=== PATIENT | female | born 1945 | race Caucasian/White ===

== ENCOUNTER 2023-01-18 12:00 | Inpatient (IN) ==
[2023-01-18] MEDS ORDERED: DILTIAZEM 25 MG/5 ML VIAL IV ONE ×2 (12:20→16:48)
[2023-01-18 12:49] LABS: POC Calcium, Ionized 1.01 (1.16-1.32); POC Creatinine 0.8 (0.6-1.2); POC Potassium 5.1 (3.3-5.1)
--- NOTE | 2023-01-18 13:05 | XRay Report ---
INDICATION: Afib RVR TECHNIQUE: AP portable upright chest x-ray COMPARISON: Previous chest x-ray dated 03/23/2021 FINDINGS: Fibrocalcific, pleural-based abnormalities bilaterally. Findings may be due to old inflammatory disease. Asbestosis is possible. There is cardiomegaly. There are bilateral parenchymal infiltrates, right worse than left. Findings are consistent with congestive heart failure. Pneumonia is possible. There are bilateral pleural effusions with probable small left pleural effusion and small to moderate right pleural effusion. IMPRESSION: 1. Findings consistent with congestive heart failure 2. Fibrocalcific pleural-based abnormality, unchanged Interpreted and Authenticated by: Gerry Romeo 01/18/23
[2023-01-18 13:29] LABS: Hematocrit 42.2 % (34.1-44.9); Hemoglobin 13.6 g/dL (11.2-15.7); Mean Cell Volume 98.4 fL (80.0-100.0); Mean Corpuscular HGB Conc 32.2 g/dL (31.0-36.0); Mean Platelet Volume 11.4 fL (8.8-12.5); Platelet Count 335 K/mcL (140-440); RBC 4.29 M/mcL (3.59-5.38)
[2023-01-18] MEDS ORDERED: DILTIAZEM 30 MG TABLET PO ONE (13:43)
[2023-01-18 13:47] LABS: Platelet Estimate NORMAL (Normal); Polychromasia 1+ (None Seen); RBC Morphology ABNORMAL (Normal)
--- NOTE | 2023-01-18 13:59 | Emergency Department Note ---
HPI General Chief complaint: Arrhythmia/Palpitations Stated complaint: "I don't feel very good" Time Seen by Provider: 01/18/23 12:18 Source: patient Mode of arrival: ambulatory Limitations: no limitations History of Present Illness HPI Narrative: 77-year-old female with history of ischemic coronary artery disease status post coronary stent about 15 years ago, hypertension, hyperlipidemia, COPD and current everyday smoker, T2DM, and remote history of stroke presents to the ER with worsening shortness of breath, weakness, and exertional chest pain. Patient states that she has been having daily chest pain for about 2-1/2 weeks. She is feeling weaker and more tired. She has poor functional capacity at [facility] with longstanding exertional shortness of breath from COPD, but does not feel this is worsening. Her notes that she started taking a nitroglycerin daily about 2 weeks ago for complaints of chest pain, which has been helpful. On presentation she is in rapid atrial fibrillation with a rate of 143 bpm. There are no ST segment elevations, but there are notable ST segment abnormalities with subtle T wave inversions in lead, I, II and V4 wtih ST flattening in V5 and V6. She is currently denying chest pain. She denies lower extremity edema, cough, recent illness. She has not had inc rease of her home albuterol, but states she does not routinely use this. He does note that she has had difficult to control hypertension. She is currently on amlodipine and candesartan/hydrochlorothiazide. She does endorse smoking about 1/2 pack/day. Related Data Home Medications Medication Instructions Recorded Confirmed aspirin 81 mg tablet,delayed 81 mg PO DAILY 12/03/17 01/18/23 release Previous Rx's Medication Instructions Recorded candesartan 32 1 tab PO QDAY #90 tabs 02/13/22 mg-hydrochlorothiazide 25 mg tablet metformin 500 mg tablet,extended 500 mg PO QDAY #90 tabs 03/16/22 release 24 hr donepezil 5 mg tablet 5 mg PO QDAY #90 tabs 09/17/22 amlodipine 10 mg tablet 10 mg PO QDAY #90 tabs 11/09/22 rosuvastatin 10 mg tablet 10 mg PO QDAY #90 tabs 11/09/22 nitroglycerin 0.4 mg sublingual 0.3 mg sublingual Q5M PRN chest 01/02/23 tablet pain #25 tabs Allergies Allergy/AdvReac Type Severity Reaction Status Date / Time Penicillins Allergy Mild rash Verified 01/18/23 11:53 Review of Systems ROS ROS Narrative: Narrative: All systems ED: reviewed and negative except as stated. [facility] Narrative Patient History Narrative: Narrative: Medical/Surgical/Family History All Active Problems Osteoporosis (Chronic 06/2022) Medicare annual wellness visit, initial (Acute) Constipation (Acute) Bilateral conjunctivitis (Acute) Mild cognitive impairment (Chronic) Dizziness (Chronic) Congestive heart failure (Acute) Hypertension (Chronic) Confusion (Acute) Chest pain (Acute) Costochondritis (Acute) Postural lightheadedness (Chronic) Ischemic heart disease, chronic (Chronic) Hypertension, essential (Chronic) Hyperlipidemia (Chronic) Diabetes mellitus, type II (Chronic) CVA (cerebral vascular accident) (Chronic) Coronary artery disease (Chronic) Chronic obstructive pulmonary disease (Chronic) Medical History Cataract associated with other syndromes cataracts removed 2016 Chronic obstructive pulmonary disease Coronary artery disease CVA (cerebral vascular accident) Ischemic (Dx: 434.90) Diabetes mellitus, type II Hyperlipidemia Hypertension Hypertension, essential Ischemic heart disease, chronic Medicare annual wellness visit, initial Osteoporosis (06/2022) Postural lightheadedness Surgical History History of esophagogastroduodenoscopy (11/25/13) History of surgical procedure Stent Family History Mother Type 2 diabetes mellitus High blood pressure Social History Smoking Status: Former smoker Alcohol Intake Frequency: a few times a month Substance Use: does not use Exam Narrative Narrative: General: AOx3, NAD, nontoxic appearing. Pleasant and conversant. HEENT: PERRL, EOMI, normocephalic. Moist mucous membranes. Normal facies Chest: Symmetric, no pain to palpation Respiratory: Diminished breath sounds in the right base with crackles. No wheezes. No respiratory distress. Unlabored breathing. Heart: Regular rate and rhythm, no murmurs/clicks/rubs. Abdomen: Non-tender, Non distended, normal bowel tones. No organomegaly. Extremities: Warm and well perfused. No edema. DP 2+ bilaterally. No venous stasis. Neuro: No focal deficits. Cranial nerves II-XII grossly normal. Skin: Warm dry, no rashes or lesions, no cyanosis. Psych: Normal mood and affect Heme/Lymph: No abnormal bruising General Limitations: no limitations Course Course Course Narrative: 77-year-old female presents for new onset rapid atrial fibrillation Reevaluation(s) Reevaluation #1: Obtain basic labs, troponin, EKG Patient's blood pressures are elevated and will be able to tolerate a 10 mg IV diltiazem push for attempted rate control Obtain chest x-ray Reevaluation #2: Urine is elevated at 0.18 though the patient is denying chest pain. EKG shows atrial fibrillation with a rate of 143 bpm but no acute ST segment elevations to suggest STEMI. She does have some nonspecific ST segment elevations. We will repeat troponin in 3 hours Chest x-ray shows evidence of congestive heart failure with bilateral pleural effusions 10 mg IV diltiazem push with rates now in the low 90s to 100. Blood pressures tolerated this well with systolic blood pressure coming down to 127 systolic blood pressures. Reevaluation #3: Repeat troponin is 0.17. Vital Signs Vital signs: Vital Signs Temperature 98.4 F 01/18/23 12:00 Pulse Rate 153 H 01/18/23 12:00 Respiratory Rate 22 01/18/23 12:00 Blood Pressure 146/123 01/18/23 12:00 Pulse Oximetry (%) 94 01/18/23 12:00 Oxygen Delivery Method Room Air 01/18/23 12:00 Temperature 98.4 F 01/18/23 12:00 Pulse Rate 75 01/18/23 16:01 Respiratory Rate 21 01/18/23 16:01 Blood Pressure 157/97 01/18/23 16:01 Pulse Oximetry (%) 93 01/18/23 16:01 Oxygen Delivery Method Room Air 01/18/23 12:00 [facility] Narrative Medical decision making narrative: New onset rapid atrial fibrillation Evidence of congestive heart failure Elevated troponin with stable serial troponin. Suspect this is type II demand Patient will need admission for stabilization of her atrial fibrillation and further evaluation. I spoke with Dr. Mccarthy who has accepted the patient for admission. We discussed giving her 40 mg of IV Lasix x1 dose and an additional 10 mg of IV Cardizem as the patient's rate did increase back to 130 bpm. He is also asked me started nitroglycerin drip to improve diuresis. The patient is transferred to the floor. Lab Data 01/18/23 12:50 Labs: Lab Results 01/18/23 01/18/23 01/18/23 Range/Units 12:43 12:45 12:50 WBC 10.0 (4.5-11.0) K/mcL RBC 4.29 (3.59-5.38) M/mcL Hgb 13.6 (11.2-15.7) g/dL Hct 42.2 (34.1-44.9) % POC Hct 42.0 (36-48) MCV 98.4 (80.0-100.0) fL MCH 31.7 (26.0-34.0) pg MCHC 32.2 (31.0-36.0) g/dL RDW 16.0 H (11.5-14.5) % Plt Count 335 (140-440) K/mcL MPV 11.4 (8.8-12.5) fL Platelet Estimate Normal (Normal) RBC Morphology Abnormal A (Normal) Polychromasia 1+ A (None Seen) POC Sodium 141 (133-145) POC Potassium 5.1 (3.3-5.1) POC Chloride 109 H (96-108) POC Total CO2 25.0 (22-30) POC Anion Gap 14.0 (8.0-16.0) POC BUN 26 H (6-20) POC Creatinine 0.8 (0.6-1.2) POC Glucose 140 H (70-105) POC WB Ioniz Calcium 1.01 L (1.16-1.32) Magnesium POC Troponin I 0.18 H (0.00-0.08) 01/18/23 01/18/23 01/18/23 Range/Units 12:50 13:38 15:52 WBC (4.5-11.0) K/mcL RBC (3.59-5.38) M/mcL Hgb (11.2-15.7) g/dL Hct (34.1-44.9) % POC Hct (36-48) MCV (80.0-100.0) fL MCH (26.0-34.0) pg MCHC (31.0-36.0) g/dL RDW (11.5-14.5) % Plt Count (140-440) K/mcL MPV (8.8-12.5) fL Platelet Estimate (Normal) RBC Morphology (Normal) Polychromasia (None Seen) POC Sodium (133-145) POC Potassium (3.3-5.1) POC Chloride (96-108) POC Total CO2 (22-30) POC Anion Gap (8.0-16.0) POC BUN (6-20) POC Creatinine (0.6-1.2) POC Glucose (70-105) POC WB Ioniz Calcium (1.16-1.32) Magnesium TNP 2.0 POC Troponin I 0.17 H (0.00-0.08) Discharge Plan Patient/Caregiver Discharge Instructions Pt seen by RECRUITMENT CONSULTANT/PA only: Yes Patient Disposition: Xfer As Inpt ([facility]) Follow up with: Yaneth Simms PA-C [Primary Care Provider] - Prescriptions: No Action candesartan-hydrochlorothiazid 32-25 mg tablet 1 tab PO QDAY Qty: 90 3RF rosuvastatin 10 mg tablet 10 mg PO QDAY Qty: 90 1RF amlodipine 10 mg tablet 10 mg PO QDAY Qty: 90 1RF nitroglycerin 0.4 mg tablet, sublingual 0.3 mg sublingual Q5M PRN (Reason: chest pain) Qty: 25 0RF Rx Instructions: do not exceed 3 doses per episode aspirin 81 mg tablet,delayed release (DR/EC) 81 mg PO DAILY metformin 500 mg tablet extended release 24 hr 500 mg PO QDAY Qty: 90 1RF donepezil 5 mg tablet 5 mg PO QDAY Qty: 90 1RF
[2023-01-18] MEDS ORDERED: APIXABAN 5 MG TABLET PO ONE (15:25)
[2023-01-18] MEDS ORDERED: FUROSEMIDE 20 MG/2 ML VIAL IV ONE (16:41)
[2023-01-18] MEDS ORDERED: FUROSEMIDE 40 MG/4 ML VIAL IV ONE ×2 (16:48→19:34)
[2023-01-18] MEDS ORDERED: 0.9 % SODIUM CHLORIDE 250 ML IV SCH (17:00)
--- NOTE | 2023-01-18 17:05 | Internal Med History&Physical ---
HPI History of Present Illness Patient information: Note initiated : 01/18/23 at 5:00 pm Service Date, if different from initiated Date: [] Patient: Glory Lam a 77 y/o F admitted on for "I don't feel very good". Chief Complaint: [] History of present illness: Ms. Lam is a 77 year old F Presents to [facility] care after feeling crummy for the past couple weeks. History is obtained from the patient and her who state that for the past 2 and half weeks she has had increased shortness of breath and left-sided chest pain that she describes as achy and nonradiating. She does take nitroglycerin as needed and has been taking that. She currently denies any chest pain. She has not seen her primary care doctor for her recent illness. She is also been more shortness of breath and her noticed that she has been more labored. She denies feeling any palpitations. No recent illnesses. Sounds like her blood pressure has been difficult to manage as well. she denies coughing. In the ED she had evaluation and was noted to be in A-fib RVR with rates 130s to 150s. She was hypertensive with systolics 140s to 150s and diastolics 110s. First troponin was 0.18 and follow-up troponin 3 hours later was 0.17. She was given diltiazem bolus with improvement in her heart rate. Patient denies history of atrial fibrillation. Last echocardiogram was June 2021 which shows a good EF of 60%. Dobutamine is stress test was unremarkable performed by Dr. Bueno. TSH and mag gee. Chest x-ray showed pulmonary edema and patient was given Lasix in the ED. Nitroglycerin gtt started for CHF and hypertension. Patient went back up into RVR and was given another bolus and may need to be put on a rate controlling drip. proBNP elevated at 10,000. After evaluating the patient in the ED I requested alycia to run case by cardiology given her h/o cad with stent and recent chest pain episodes as well as new afib with chf. she is also still smoking cigarettes. Case was d/w with Dr. Knox at [facility] who recommended treating here for new afib rvr with associated chf and she can f/u with them for ischemic w/u. Review of Systems: Pertinent positives as above. Denies headache/fever/chills/nausea/vomiting/chest or abdominal pain/cough/diarrhea. Remaining 10 point review of system reviewed negative. PHYSICAL EXAM General: Alert, Awake, mild Distress Eyes/N/T: EOMI, no scleral icterus, PERRL, Head/Neck: neck supple, full ROM, normocephalic atraumatic, JVD CV: irreg and tachy, No murmurs, normal s1/s2 Pulm: mild subtle rales, diminished b/l, no wheezing, mild respiratory distress Abd: soft, nontender, +BS x4 Ext: no clubbing/cyanosis/edema, nontender Neuro: Alert, CN 2-12 grossly intact, no focal deficits, moves all extremities, , sensations intact b/l upper/lower Psychiatric: Skin: warm/dry, normal color PFSH PFSH All Active Problems Osteoporosis (Chronic 06/2022) Medicare annual wellness visit, initial (Acute) Constipation (Acute) Bilateral conjunctivitis (Acute) Mild cognitive impairment (Chronic) Dizziness (Chronic) Congestive heart failure (Acute) Hypertension (Chronic) Confusion (Acute) Chest pain (Acute) Costochondritis (Acute) Postural lightheadedness (Chronic) Ischemic heart disease, chronic (Chronic) Hypertension, essential (Chronic) Hyperlipidemia (Chronic) Diabetes mellitus, type II (Chronic) CVA (cerebral vascular accident) (Chronic) Coronary artery disease (Chronic) Chronic obstructive pulmonary disease (Chronic) Medical History Cataract associated with other syndromes cataracts removed 2016 Chronic obstructive pulmonary disease Coronary artery disease CVA (cerebral vascular accident) Ischemic (Dx: 434.90) Diabetes mellitus, type II Hyperlipidemia Hypertension Hypertension, essential Ischemic heart disease, chronic Medicare annual wellness visit, initial Osteoporosis (06/2022) Postural lightheadedness Surgical History History of esophagogastroduodenoscopy (11/25/13) History of surgical procedure Stent Family History Mother Type 2 diabetes mellitus High blood pressure Social History marital status: occupational status: retired smoking status: Former smoker quit status: not considering quitting counseling given: patient declined alcohol intake frequency: a few times a month substance use type: does not use MEDS/ALLERGIES Home Medications and Allergies Home Medications Medication Instructions Recorded Confirmed Type aspirin 81 mg tablet,delayed 81 mg PO DAILY 12/03/17 01/18/23 History release candesartan 32 1 tab PO QDAY #90 tabs 02/13/22 01/18/23 Rx mg-hydrochlorothiazide 25 mg tablet metformin 500 mg tablet,extended 500 mg PO QDAY #90 tabs 03/16/22 01/18/23 Rx release 24 hr donepezil 5 mg tablet 5 mg PO QDAY #90 tabs 09/17/22 01/18/23 Rx amlodipine 10 mg tablet 10 mg PO QDAY #90 tabs 11/09/22 01/18/23 Rx rosuvastatin 10 mg tablet 10 mg PO QDAY #90 tabs 11/09/22 01/18/23 Rx nitroglycerin 0.4 mg sublingual 0.3 mg sublingual Q5M PRN chest 01/02/2310/11 Rx tablet pain #25 tabs Allergies Allergy/AdvReac Type Severity Reaction Status Date / Time Penicillins Allergy Mild rash Verified 01/18/23 11:53 EXAM Constitutional Vitals: Temp Pulse Resp BP Pulse Ox O2 Del Method 98.4 F 75 21 157/97 93 Room Air 01/18/23 12:00 01/18/23 16:01 01/18/23 16:01 01/18/23 16:01 01/18/23 16:01 01/18/23 12:00 DATA Data Completed and Pending Labs: Labs from last 24 hours 01/18/23 01/18/23 01/18/23 15:52 15:50 13:38 WBC RBC Hgb Hct POC Hct MCV MCH MCHC RDW Plt Count MPV Platelet Estimate RBC Morphology Polychromasia POC Sodium POC Potassium POC Chloride POC Total CO2 POC Anion Gap POC BUN POC Creatinine POC Glucose POC WB Ioniz Calcium Magnesium 2.0 NT-Pro-B Natriuret Pep Pending TSH Pending POC Troponin I 0.17 H 01/18/23 01/18/23 01/18/23 12:50 12:50 12:45 WBC 10.0 RBC 4.29 Hgb 13.6 Hct 42.2 POC Hct 42.0 MCV 98.4 MCH 31.7 MCHC 32.2 RDW 16.0 H Plt Count 335 MPV 11.4 Platelet Estimate Normal RBC Morphology Abnormal A Polychromasia 1+ A POC Sodium 141 POC Potassium 5.1 POC Chloride 109 H POC Total CO2 25.0 POC Anion Gap 14.0 POC BUN 26 H POC Creatinine 0.8 POC Glucose 140 H POC WB Ioniz Calcium 1.01 L Magnesium TNP NT-Pro-B Natriuret Pep TSH POC Troponin I 01/18/23 12:43 WBC RBC Hgb Hct POC Hct MCV MCH MCHC RDW Plt Count MPV Platelet Estimate RBC Morphology Polychromasia POC Sodium POC Potassium POC Chloride POC Total CO2 POC Anion Gap POC BUN POC Creatinine POC Glucose POC WB Ioniz Calcium Magnesium NT-Pro-B Natriuret Pep TSH POC Troponin I 0.18 H A/P Narrative A/P Narrative: A: *New A-fib with RVR: -CHADSVASC=7 -tsh/mag ok *Acute CHF: 2/2 above *Demand ischemia: 2/2 above, trop flat 0.18>0.17 *HTN Urgency: elevated on admit -sounds like it has been difficult to treat outpt *h/o CAD w/stents: -Unremarkable dobutamine stress test June 2021 -pt on asa/statin *h/o CVA: pt on asa/statin *COPD(not on home O2): *DM2: on metformin *HTN/HLD: On Norvasc/candesartan/hydrochlorothiazide *Memory loss: ?early vascular dementia vs MCI -on donepezil *Tobacco abuse: * P: -Esmolol drip prn, start PO Lopressor may switch to coreg to help with BP control -IV lasix x1, prn lasix, f/u cxr and respiratory -nitro gtt -Monitor blood pressure closely -Anticoagulation with Lovenox twice daily, likely to Eliquis upon discharge -cont asa 81mg, statin -echo pending -Monitor urine output/renal function/electrolytes and replace as needed -cont ARB -SSI -Home medication reconciliation -PT/OT -CM for any placement needs -Smoking cessation counseling >3 minutes -ppx: Lovenox twice daily DNR Time Spent With Patient Time: Total time spent is greater than 50% in coordination of care (as documented) at patient's floor/unit and/or counseling patient: Critical Care Time: Yes Total Critical Care Time: 70
[2023-01-18 17:07] LABS: Thyroid Stimulating Hormone 1.97 uIU/mL (0.27-5.01)
[2023-01-18] MEDS ORDERED: ACETAMINOPHEN 325 MG TABLET PO PRN (18:40)
[2023-01-18] MEDS ORDERED: ONDANSETRON 4 MG/2 ML VIAL IV PRN (18:40)
[2023-01-18] MEDS ORDERED: SENNOSIDES 1 TABLET PO PRN (18:40)
[2023-01-18] MEDS ORDERED: POTASSIUM CHLORIDE 20 MEQ TABLET PO PRN (18:40)
[2023-01-18] MEDS ORDERED: NITROGLYCERIN 0.4 MG TAB.SUBL SL PRN (18:40)
[2023-01-18] MEDS ORDERED: POLYETHYLENE GLYCOL 3350 17 GM PACKET PO PRN (18:40)
[2023-01-18] MEDS ORDERED: DEXTROSE 50% 50 ML VIAL IV PRN (18:40)
[2023-01-18] MEDS ORDERED: ESMOLOL 2,500 MG in PREMIX 1 BAG IV PRN (18:40)
[2023-01-18] MEDS ORDERED: IPRATROPIUM/ALBUTEROL 3 ML AMPUL.NEB NEB PRN (18:40)
[2023-01-18] MEDS ORDERED: MAGNESIUM SULFATE 2 GM/50 ML BAG IV PRN (18:40)
[2023-01-18] MEDS ORDERED: DEXTROSE 31 GM ORAL.SUSP PO PRN (18:40)
[2023-01-18] MEDS ORDERED: POTASSIUM CHLORIDE 40 MEQ in DEXTROSE 5% IN WATER 500 ML IV PRN (18:40)
[2023-01-18] MEDS: LABETALOL 5 MG/ML ML IV PRN ×2 (19:00→22:32)
[2023-01-18] MEDS ORDERED: METOPROLOL TARTRATE 5 MG/5 ML VIAL IV PRN (19:34)
[2023-01-18] MEDS: NITROGLYCERIN/D5W 25 MG/250 ML BOTTLE IV SCH (19:42)
[2023-01-18] MEDS: DOCUSATE SODIUM 100 MG CAPSULE PO SCH (19:45)
[2023-01-18] MEDS: ENOXAPARIN 80 MG/0.8 ML SYRINGE SQ SCH (19:47)
[2023-01-18] MEDS: METOPROLOL TARTRATE 25 MG TABLET PO SCH (19:47)
[2023-01-18] MEDS: INSULIN LISPRO 1 UNIT/0.01 ML UNIT SQ SCH (19:55)
[2023-01-18 20:32] LABS: Hemoglobin A1C 5.7 % Hgb (4.0-6.0)
[2023-01-18 22:24] LABS: Appearance,Urine CLOUDY (Clear); Bacteria,Urine MANY /hpf (0); Bilirubin,Urine Negative (Negative); Color,Urine YELLOW; Culture Indicated,Urine yes; Glucose,Urine (UA) Negative (Negative); Ketones,Urine Negative (Negative); Leukocyte Esterase,Urine 500 /uL (Negative); Mucus,Urine MANY /hpf; Nitrate,Urine Negative (Negative); Protein,Urine 30 mg/dL (Negative); Specific Gravity,Urine 1.012 (1.000-1.035); Urine Blood 0.03 mg/dL (Negative); Urine RBC 4 /hpf (0-3); Urine Squamous Epithelial Cell 1 /hpf (0-4); Urine WBC > 182 /hpf (0-4); Urobilinogen,Urine Negative
[2023-01-19] MEDS: LABETALOL 5 MG/ML ML IV PRN ×3 (00:22→13:11)
[2023-01-19] MEDS: 0.9 % SODIUM CHLORIDE 250 ML IV SCH ×4 (00:29→20:43)
[2023-01-19 06:05] LABS: Basophils # (Auto) 0.07 K/mcL (0.00-0.30); Basophils % (Auto) 0.7 % (0.0-2.0); Eosinophils # (Auto) 0.19 K/mcL (0.00-0.70); Eosinophils % (Auto) 1.9 % (0.0-7.0); Hematocrit 40.7 % (34.1-44.9); Hemoglobin 12.7 g/dL (11.2-15.7); Lymphocytes # (Auto) 3.26 K/mcL (1.50-4.80); Lymphocytes % (Auto) 32.4 % (15.5-49.0); Mean Cell Volume 101.5 fL (80.0-100.0); Mean Corpuscular HGB Conc 31.2 g/dL (31.0-36.0); Mean Platelet Volume 10.9 fL (8.8-12.5); Monocytes # (Auto) 0.67 K/mcL (0.10-0.90); Monocytes % (Auto) 6.7 % (1.0-12.0); Platelet Count 298 K/mcL (140-440); RBC 4.01 M/mcL (3.59-5.38); WBC 10.1 K/mcL (4.5-11.0)
[2023-01-19 06:47] LABS: ALT/SGPT 23 U/L (<40); AST/SGOT 19 U/L (<32); Albumin 3.5 gm/dL (3.2-5.2); Albumin/Globulin Ratio 1.5 (1.0-2.3); Alkaline Phosphatase 110 U/L (39-117); Bilirubin,Direct 0.3 mg/dL (<0.3); Bilirubin,Total 1.1 mg/dL (0.1-1.0); Blood Urea Nitrogen 12 mg/dL (8-23); Calcium 8.2 mg/dL (8.6-10.4); Carbon Dioxide 26 mmol/L (22-30); Chloride 106 mmol/L (96-108); Globulin 2.3 gm/dL (2.2-3.7); Glomerular Filtration Rate 70; Glucose 113 mg/dL (70-105); Lactate Dehydrogenase 223 U/L (135-225); Phosphorous 2.7 mg/dL (2.5-4.5); Triglycerides 122 mg/dL (<150); Uric Acid 6.2 mg/dL (2.5-8.0)
[2023-01-19] MEDS: INSULIN LISPRO 1 UNIT/0.01 ML UNIT SQ SCH ×4 (07:07→20:44)
[2023-01-19] MEDS: POTASSIUM CHLORIDE 20 MEQ TABLET PO PRN (07:19)
[2023-01-19] MEDS: DOCUSATE SODIUM 100 MG CAPSULE PO SCH ×2 (07:19→20:44)
[2023-01-19] MEDS: METOPROLOL TARTRATE 25 MG TABLET PO SCH (07:19)
[2023-01-19] MEDS: ASPIRIN 81 MG TAB.CHEW CHEWED SCH (07:19)
[2023-01-19] MEDS: ENOXAPARIN 80 MG/0.8 ML SYRINGE SQ SCH (07:20)
[2023-01-19] MEDS ORDERED: ENALAPRILAT 1.25 MG/ML VIAL IV PRN (08:32)
[2023-01-19] MEDS ORDERED: CARVEDILOL 6.25 MG TABLET PO ONE (08:34)
--- NOTE | 2023-01-19 08:34 | Internal Med Progress Note ---
SUBJECTIVE Subjective Patient information: Note initiated : 01/19/23 at 8:30 am Service Date, if different from initiated Date: [] Patient: Glory Lam a 77 y/o F admitted on 01/18/23 for "I don't feel very good". Chief Complaint: [] Interval history: History of present illness: Ms. Lam is a 77 year old F Presents to [facility] care after feeling crummy for the past couple weeks. History is obtained from the patient and her who state that for the past 2 and half weeks she has had increased shortness of breath and left-sided chest pain that she describes as achy and nonradiating. She does take nitroglycerin as needed and has been taking that. She currently denies any chest pain. She has not seen her primary care doctor for her recent illness. She is also been more shortness of breath and her noticed that she has been more labored. She denies feeling any palpitations. No recent illnesses. Sounds like her blood pressure has been difficult to manage as well. she denies coughing. In the ED she had evaluation and was noted to be in A-fib RVR with rates 130s to 150s. She was hypertensive with systolics 140s to 150s and diastolics 110s. First troponin was 0.18 and follow-up troponin 3 hours later was 0.17. She was given diltiazem bolus with improvement in her heart rate. Patient denies history of atrial fibrillation. Last echocardiogram was June 2021 which shows a good EF of 60%. Dobutamine is stress test was unremarkable performed by Dr. Bueno. TSH and mag gee. Chest x-ray showed pulmonary edema and patient was given Lasix in the ED. Nitroglycerin gtt started for CHF and hypertension. Patient went back up into RVR and was given another bolus and may need to be put on a rate controlling drip. proBNP elevated at 10,000. After evaluating the patient in the ED I requested alycia to run case by cardiology given her h/o cad with stent and recent chest pain episodes as well as new afib with chf. she is also still smoking cigarettes. Case was d/w with Dr. Knox at [facility] who recommended treating here for new afib rvr with associated chf and she can f/u with them for ischemic w/u. 01/19 Patient states she slept okay but feels crummy this morning. Patient did not require esmolol drip overnight. Did fine on IV and p.o. Lopressor. Blood pressure improving on nitro drip and will DC. Good urine output overnight and multiple urinary incontinence is unrecorded amount. Mild hypokalemia and will replete. Follow-up chest x-ray status post diuresis and rate control with improved interstitial edema. Review of Systems: Pertinent positives as above. Denies headache/fever/chills/naus ea/vomiting/chest or abdominal pain/cough/diarrhea. Remaining 10 point review of system reviewed negative. PHYSICAL EXAM General: Alert, Awake, mild Distress Eyes/N/T: EOMI, no scleral icterus, Head/Neck: neck supple, full ROM, no more jvd CV: irreg, No murmurs, Pulm: mild subtle rales better, diminished b/l better, no wheezing, no respiratory distress Abd: soft, nontender, +BS x4 Ext: no clubbing/cyanosis/edema, nontender Neuro: Alert, no focal deficits, moves all extremities, , sensations intact b/l upper/lower Psychiatric: Skin: warm/dry, normal color Constitutional Vitals: Vital Signs Temp Pulse Resp BP Pulse Ox O2 Del Method O2 Flow Rate 97.5 F 79 18 154/98 95 Room Air 1 01/19/23 00:01 01/19/23 08:09 01/19/23 08:09 01/19/23 08:01 01/19/23 08:09 01/19/23 07:38 01/19/23 05:01 Period Temp Pulse Resp BP Sys/Evans Pulse Ox O2 Del Method O2 Flow Rate Last 24 Hr 97.1 F-98.4 F 28-156 15-29 114-172/68-132 88-99 Nasal Cannula- Room Air 1-1 Intake and Output 01/18/23 01/19/23 01/19/23 19:59 03:59 11:59 Intake Total 36 130 Output Total 2053 0 130 Weight 57.697 kg 57.697 kg Intake & Output: Intake & Output 01/18/23 01/19/23 01/19/23 19:59 03:59 11:59 Intake Total 36 130 Output Total 2053 0 130 Weight 57.697 kg 57.697 kg Intake: IV 36 80 NITROGLYCERIN/D5W 25 mg In 250 36 80 ml @ 5 MCG/MIN 3 mls/hr IV . Q24H [facility] Rx#:[id number] Oral 50 Output: Void Amount 2049 0 # of times incontinent of urine 4 Other: Urine Appearance Clear Urine Color Yellow Urine Odor Normal # Bowel Movements 0 OBJ DATA Labs 01/19/23 05:05 01/19/23 05:05 Labs: Abnormal Lab Results 01/19/23 01/19/23 01/18/23 05:05 05:05 21:06 MCV 101.5 H RDW 16.0 H RBC Morphology Polychromasia Potassium 3.1 L POC Chloride POC BUN Glucose 113 H POC Glucose Calcium 8.2 L POC WB Ioniz Calcium Total Bilirubin 1.1 H Direct Bilirubin 0.3 H NT-Pro-B Natriuret Pep Total Protein 5.8 L Urine Appearance Cloudy A Urine Protein 30 A Ur Leukocyte Esterase 500 A Urine RBC 4 H Urine WBC > 182 H Urine Bacteria Many A Urine Mucus Many A POC Troponin I 01/18/23 01/18/23 01/18/23 15:52 15:50 12:50 MCV RDW 16.0 H RBC Morphology Abnormal A Polychromasia 1+ A Potassium POC Chloride POC BUN Glucose POC Glucose Calcium POC WB Ioniz Calcium Total Bilirubin Direct Bilirubin NT-Pro-B Natriuret Pep 76615.0 H Total Protein Urine Appearance Urine Protein Ur Leukocyte Esterase Urine RBC Urine WBC Urine Bacteria Urine Mucus POC Troponin I 0.17 H 01/18/23 01/18/23 12:45 12:43 MCV RDW RBC Morphology Polychromasia Potassium POC Chloride 109 H POC BUN 26 H Glucose POC Glucose 140 H Calcium POC WB Ioniz Calcium 1.01 L Total Bilirubin Direct Bilirubin NT-Pro-B Natriuret Pep Total Protein Urine Appearance Urine Protein Ur Leukocyte Esterase Urine RBC Urine WBC Urine Bacteria Urine Mucus POC Troponin I 0.18 H Meds: Medications Acetaminophen (Acetaminophen 325 Mg Tablet) 650 mg PO Q6HP PRN PRN Reason: fever > 101 Albuterol/Ipratropium (Ipratropium/Albuterol 3 Ml Ampul.Neb) 3 ml NEB Q4HP PRN PRN Reason: Shortness Of Breath Aspirin (Aspirin 81 Mg Tab.Chew) 81 mg CHEWED DAILY [facility] Last Admin: 01/19/23 07:19 Dose: 81 mg Dextrose (Dextrose 50% 50 Ml Vial) 0 ml IV UD PRN PRN Reason: Per Sliding Scale Diagnostic Test (Pha) (Accu-Chek 1 Each Strip) 1 each FS ACHS [facility] Last Admin: 01/19/23 07:07 Dose: 1 each Docusate Sodium (Docusate Sodium 100 Mg Capsule) 100 mg PO BID [facility] Last Admin: 01/19/23 07:19 Dose: 100 mg Enoxaparin Sodium (Enoxaparin 80 Mg/0.8 Ml Syringe) 70 mg SQ BID [facility] Last Admin: 01/19/23 07:20 Dose: 70 mg Glucose (Dextrose 31 Gm Oral.Susp) 15 gm PO PRN PRN PRN Reason: Hypoglycemia Nitroglycerin/Dextrose (Nitroglycerin/D5w) 25 mg in 250 mls @ 3 mls/hr IV .Q24H [facility]; Protocol Last Titration: 01/19/23 08:08 Dose: 10 mcg/min, 6 mls/hr Esmolol HCl 2,500 mg/ Premix 250 mls @ 20.412 mls/hr IV .[id number] PRN; Protocol PRN Reason: tachycardia HR>110 Sodium Chloride (Sodium Chloride 0.9%) 250 mls @ 20 mls/hr IV .[id number] [facility] Last Admin: 01/19/23 07:06 Dose: Not Given Potassium Chloride 40 meq/ (Dextrose) 520 mls @ 130 mls/hr IV UD PRN PRN Reason: Potassium Level < 3 Magnesium Sulfate (Magnesium Sulfate) 2 gm in 50 mls @ 25 mls/hr IV UD PRN PRN Reason: Magnesium Level </= 1.6 Insulin Human Lispro (Insulin Lispro 1 Unit/0.01 Ml Unit) 0 unit SQ [facility]; Protocol Last Admin: 01/19/23 07:07 Dose: Not Given Labetalol HCl (Labetalol 5 Mg/Ml Ml) 0 mg IV Q2HP PRN PRN Reason: Hypertension Last Admin: 01/19/23 06:30 Dose: 10 mg Metoprolol Tartrate (Metoprolol Tartrate 25 Mg Tablet) 25 mg PO BID [facility] Last Admin: 01/19/23 07:19 Dose: 25 mg Metoprolol Tartrate (Metoprolol Tartrate 5 Mg/5 Ml Vial) 5 mg IV Q2HP PRN PRN Reason: Tachyarrhythmias HR>110 Nitroglycerin (Nitroglycerin 0.4 Mg Tab.Subl) 0.4 mg SL Q5M PRN PRN Reason: Chest Pain Ondansetron HCl (Ondansetron 4 Mg/2 Ml Vial) 4 mg IV Q4HP PRN PRN Reason: Nausea And Vomiting Polyethylene Glycol (Polyethylene Glycol 3350 17 Gm Packet) 17 gm PO DAILYP PRN PRN Reason: Constipation Potassium Chloride (Potassium Chloride 20 Meq Tablet) 40 meq PO UD PRN PRN Reason: Potassium Level of 3-3.5 Last Admin: 01/19/23 07:19 Dose: 40 meq Potassium Chloride (Potassium Chloride 20 Meq Tablet) 40 meq PO UD PRN PRN Reason: Potassium Level < 3 Senna (Sennosides 1 Tablet) 2 tab PO DAILYP PRN PRN Reason: Constipation A/P Narrative A/P Narrative: A: *New A-fib w/RVR: -CHADSVASC=7 -tsh/mag ok *Acute CHF: 2/2 above *Demand ischemia: 2/2 above, trop flat 0.18>0.17 *HTN Urgency: elevated on admit -sounds like it has been difficult to treat outpt *HypoKalemia: *h/o CAD w/stents: -Unremarkable dobutamine stress test June 2021 -pt on asa/statin *h/o CVA: pt on asa/statin *COPD(not on home O2): *DM2: on metformin *HTN/HLD: On Norvasc/candesartan/hydrochlorothiazide *Memory loss: ?early vascular dementia vs MCI -on donepezil *Tobacco abuse: P: -Esmolol drip prn, started PO Lopressor but switch to coreg to help with BP control -IV lasix x1, prn lasix, f/u cxr and respiratory -nitro gtt d/c today -Monitor blood pressure closely -Anticoagulation with Lovenox twice daily, likely to Eliquis upon discharge -cont asa 81mg, statin -echo pending -Monitor urine output/renal function/electrolytes and replace as needed -cont ARB/hctz -SSI -PT/OT -CM for any placement needs -Smoking cessation counseling -ppx: Lovenox twice daily DNR Time Spent With Patient Time: Total time spent is greater than 50% in coordination of care (as documented) at patient's floor/unit and/or counseling patient: Subsequent: Total time with patient: 50 - 65 Minutes QUALITY Stroke Symptom Onset Unknown: No VTE Deep Vein Thrombosis/Pulmonary Embolism Present on Admission: No
[2023-01-19] MEDS: HYDROCHLOROTHIAZIDE 25 MG TABLET PO SCH (09:03)
[2023-01-19] MEDS: DONEPEZIL 10 MG TABLET PO SCH (09:03)
[2023-01-19] MEDS: OLMESARTAN MEDOXOMIL 20 MG TABLET PO SCH (09:03)
--- NOTE | 2023-01-19 09:26 | XRay Report ---
INDICATION: f/u s/p lasix and rate control afib TECHNIQUE: AP portable semiupright chest x-ray COMPARISON: Previous examination dated 01/18/2023 FINDINGS: Mild cardiomegaly. Probable interstitial edema may be slightly improved. There is decreased pleural fluid. No focal parenchymal consolidation. No evidence for acute pneumonia. Again demonstrated is fibrocalcific pleural-based abnormality. IMPRESSION: 1. Cardiomegaly and probable interstitial edema 2. Mild interval improvement with decreased pleural fluid Interpreted and Authenticated by: Gerry Romeo 01/19/23
--- NOTE | 2023-01-19 12:58 | Discharge Summary ---
Discharge Provider Provider IMPORTANT FOLLOW-UP INFORMATION FOR PCP: Patient information: Note initiated : 01/19/23 at 12:52 pm Service Date, if different from initiated Date: [] Patient: Glory Lam a 77 y/o F admitted on 01/18/23 for "I don't feel very good". Chief Complaint: [] Date of admission: 01/18/23 18:35 Primary care physician: Yaneth Simms PA-C Consults: 01/18/23 Consult to Physician [CONS] Stat Comment: Consulting Provider: Steve Mccarthy Reason For Exam: Physician to Consult COURSE Hospital Course Hospital course: History of present illness: Ms. Lam is a 77 year old F Presents to [facility] care after feeling crummy for the past couple weeks. History is obtained from the patient and her who state that for the past 2 and half weeks she has had increased shortness of breath and left-sided chest pain that she describes as achy and nonradiating. She does take nitroglycerin as needed and has been taking that. She currently denies any chest pain. She has not seen her primary care doctor for her recent illness. She is also been more shortness of breath and her noticed that she has been more labored. She denies feeling any palpitations. No recent illnesses. Sounds like her blood pressure has been difficult to manage as well. she denies coughing. In the ED she had evaluation and was noted to be in A-fib RVR with rates 130s to 150s. She was hypertensive with systolics 140s to 150s and diastolics 110s. First troponin was 0.18 and follow-up troponin 3 hours later was 0.17. She was given diltiazem bolus with improvement in her heart rate. Patient denies history of atrial fibrillation. Last echocardiogram was June 2021 which shows a good EF of 60%. Dobutamine is stress test was unremarkable performed by Dr. Bueno. TSH and mag gee. Chest x-ray showed pulmonary edema and patient was given Lasix in the ED. Nitroglycerin gtt started for CHF and hypertension. Patient went back up into RVR and was given another bolus and may need to be put on a rate controlling drip. proBNP elevated at 10,000. After evaluating the patient in the ED I requested alycia to run case by cardiology given her h/o cad with stent and recent chest pain episodes as well as new afib with chf. she is also still smoking cigarettes. Case was d/w with Dr. Knox at [facility] who recommended treating here for new afib rvr with associated chf and she can f/u with them for ischemic w/u. 01/19 Patient states she slept okay but feels crummy this morning. Patient did not require esmolol drip overnight. Did fine on IV and p.o. Lopressor. Blood pressure improving on nitro drip and will DC. Good urine output overnight and multiple urinary incontinence is unrecorded amount. Mild hypokalemia and will replete. Follow-up chest x-ray status post diuresis and rate control with improved interstitial edema. Verbal report from cotton cleaner on echo stated that ejection fraction is 25% as well as diastolic dysfunction. 01/20 No overnight event or new complaints. Patient does complain of being tired. Heart rate controlled. blood pressure not quite optimized, will reduce Coreg. Mild hypokalemia. IV Lasix x1 today and then will transition to p.o. Lasix. A: *New A-fib w/RVR: *Acute systolic(25%)/diastolic on likely chronic CHF: *Demand ischemia: 2/2 above, trop flat 0.18>0.17 *HTN Urgency: elevated on admit -sounds like it has been difficult to treat outpt *HypoKalemia: *h/o CAD w/stents: -Unremarkable dobutamine stress test June 2021 -pt on asa/statin *h/o CVA: pt on asa/statin *UTI(Klebsiella pneumonia): *COPD(not on home O2): *DM2: on metformin *HTN/HLD: On Norvasc/candesartan/hydrochlorothiazide *Memory loss: ?early vascular dementia vs MCI -on donepezil *Tobacco abuse: P: -eliquis -coreg -lasix -cont ARB -asa/statin -smoking cessation counseling -f/u with Dr. Bueno, cardiology Discharge diagnosis: New A-fib with RVR heart failure demand ischemia hypertensive urgency Secondary discharge diagnosis: Hypokalemia history of CAD stroke COPD diabetes hypertension tobacco abuse Time Spent with Patient Time attestation: Total time spent providing and/or coordinating discharge services: Time spent: Greater than 30 minutes EXAM Constitutional Vitals: Temp Pulse Resp BP Pulse Ox O2 Del Method O2 Flow Rate 97.5 F 120 H 17 143/91 94 Room Air 1 01/19/23 00:01 01/19/23 12:11 01/19/23 12:11 01/19/23 12:01 01/19/23 12:11 01/19/23 07:38 01/19/23 05:01 Discharge Data Data Completed and Pending Labs on day of discharge: Labs from last 24 hours 01/19/23 01/19/23 01/18/23 05:05 05:05 21:06 WBC 10.1 RBC 4.01 Hgb 12.7 Hct 40.7 MCV 101.5 H MCH 31.7 MCHC 31.2 RDW 16.0 H Plt Count 298 MPV 10.9 Immature Gran % (Auto) 0.3 Neut % (Auto) 58.0 Lymph % (Auto) 32.4 [place] % (Auto) 6.7 Eos % (Auto) 1.9 Baso % (Auto) 0.7 Lymph # (Auto) 3.26 [place] # (Auto) 0.67 Eos # (Auto) 0.19 Baso # (Auto) 0.07 Immature Gran # 0.03 Absolute Neutrophils 5.84 Platelet Estimate RBC Morphology Polychromasia Sodium 144 Potassium 3.1 L Chloride 106 Carbon Dioxide 26 Anion Gap 12.0 BUN 12 Creatinine 0.8 GFR Calculation 70 Glucose 113 H Hemoglobin A1c Estim Average Glucose Uric Acid 6.2 Calcium 8.2 L Phosphorus 2.7 Magnesium 2.0 Total Bilirubin 1.1 H Direct Bilirubin 0.3 H GGT 25 AST 19 ALT 23 Alkaline Phosphatase 110 Lactate Dehydrogenase 223 NT-Pro-B Natriuret Pep Total Protein 5.8 L Albumin 3.5 Globulin 2.3 Albumin/Globulin Ratio 1.5 Triglycerides 122 TSH Urine Color Yellow Urine Appearance Cloudy A Urine pH 6.0 Ur Specific [place] 1.012 Urine Protein 30 A Urine Glucose (UA) Negative Urine Ketones Negative Urine Occult Blood 0.03 Urine Nitrate Negative Urine Bilirubin Negative Urine Urobilinogen Negative Ur Leukocyte Esterase 500 A Urine RBC 4 H Urine WBC > 182 H Ur Squamous Epith Cells 1 Urine Bacteria Many A Urine Mucus Many A Ur Culture Indicated? yes POC Troponin I 01/18/23 01/18/23 01/18/23 15:52 15:50 13:38 WBC RBC Hgb Hct MCV MCH MCHC RDW Plt Count MPV Immature Gran % (Auto) Neut % (Auto) Lymph % (Auto) [place] % (Auto) Eos % (Auto) Baso % (Auto) Lymph # (Auto) [place] # (Auto) Eos # (Auto) Baso # (Auto) Immature Gran # Absolute Neutrophils Platelet Estimate RBC Morphology Polychromasia Sodium Potassium Chloride Carbon Dioxide Anion Gap BUN Creatinine GFR Calculation Glucose Hemoglobin A1c Estim Average Glucose Uric Acid Calcium Phosphorus Magnesium 2.0 Total Bilirubin Direct Bilirubin GGT AST ALT Alkaline Phosphatase Lactate Dehydrogenase NT-Pro-B Natriuret Pep 71770.0 H Total Protein Albumin Globulin Albumin/Globulin Ratio Triglycerides TSH 1.97 Urine Color Urine Appearance Urine pH Ur Specific [place] Urine Protein Urine Glucose (UA) Urine Ketones Urine Occult Blood Urine Nitrate Urine Bilirubin Urine Urobilinogen Ur Leukocyte Esterase Urine RBC Urine WBC Ur Squamous Epith Cells Urine Bacteria Urine Mucus Ur Culture Indicated? POC Troponin I 0.17 H 01/18/23 01/18/23 01/18/23 12:50 12:50 12:50 WBC 10.0 RBC 4.29 Hgb 13.6 Hct 42.2 MCV 98.4 MCH 31.7 MCHC 32.2 RDW 16.0 H Plt Count 335 MPV 11.4 Immature Gran % (Auto) Neut % (Auto) Lymph % (Auto) [place] % (Auto) Eos % (Auto) Baso % (Auto) Lymph # (Auto) [place] # (Auto) Eos # (Auto) Baso # (Auto) Immature Gran # Absolute Neutrophils Platelet Estimate Normal RBC Morphology Abnormal A Polychromasia 1+ A Sodium Potassium Chloride Carbon Dioxide Anion Gap BUN Creatinine GFR Calculation Glucose Hemoglobin A1c 5.7 Estim Average Glucose 117 Uric Acid Calcium Phosphorus Magnesium TNP Total Bilirubin Direct Bilirubin GGT AST ALT Alkaline Phosphatase Lactate Dehydrogenase NT-Pro-B Natriuret Pep Total Protein Albumin Globulin Albumin/Globulin Ratio Triglycerides TSH Urine Color Urine Appearance Urine pH Ur Specific [place] Urine Protein Urine Glucose (UA) Urine Ketones Urine Occult Blood Urine Nitrate Urine Bilirubin Urine Urobilinogen Ur Leukocyte Esterase Urine RBC Urine WBC Ur Squamous Epith Cells Urine Bacteria Urine Mucus Ur Culture Indicated? POC Troponin I 01/18/23 12:43 WBC RBC Hgb Hct MCV MCH MCHC RDW Plt Count MPV Immature Gran % (Auto) Neut % (Auto) Lymph % (Auto) [place] % (Auto) Eos % (Auto) Baso % (Auto) Lymph # (Auto) [place] # (Auto) Eos # (Auto) Baso # (Auto) Immature Gran # Absolute Neutrophils Platelet Estimate RBC Morphology Polychromasia Sodium Potassium Chloride Carbon Dioxide Anion Gap BUN Creatinine GFR Calculation Glucose Hemoglobin A1c Estim Average Glucose Uric Acid Calcium Phosphorus Magnesium Total Bilirubin Direct Bilirubin GGT AST ALT Alkaline Phosphatase Lactate Dehydrogenase NT-Pro-B Natriuret Pep Total Protein Albumin Globulin Albumin/Globulin Ratio Triglycerides TSH Urine Color Urine Appearance Urine pH Ur Specific [place] Urine Protein Urine Glucose (UA) Urine Ketones Urine Occult Blood Urine Nitrate Urine Bilirubin Urine Urobilinogen Ur Leukocyte Esterase Urine RBC Urine WBC Ur Squamous Epith Cells Urine Bacteria Urine Mucus Ur Culture Indicated? POC Troponin I 0.18 H Preliminary micro results at discharge 01/18/23 21:06 Urine Culture - Preliminary Urine - Clean Void Mid-Stream Gram negative bacillus Discharge Plan Patient/Caregiver Discharge Instructions Activity: increase activity as tolerated Diet: Consistent Carbohydrate Instructions: Apixaban (By mouth), A-fib (Atrial Fibrillation) (DC), How to Stop Smoking (DC) Prescriptions: New Eliquis 5 mg tablet 5 mg PO BID Qty: 60 0RF furosemide [Lasix] 40 mg tablet 40 mg PO QAM Qty: 30 0RF candesartan 32 mg tablet 32 mg PO QDAY Qty: 30 0RF carvedilol [Coreg] 25 mg tablet 25 mg PO BID Qty: 60 0RF Rx Instructions: must administer with a meal/food Continued rosuvastatin 10 mg tablet 10 mg PO QDAY Qty: 90 1RF nitroglycerin 0.4 mg tablet, sublingual 0.3 mg sublingual Q5M PRN (Reason: chest pain) Qty: 25 0RF Rx Instructions: do not exceed 3 doses per episode aspirin 81 mg tablet,delayed release (DR/EC) 81 mg PO DAILY metformin 500 mg tablet extended release 24 hr 500 mg PO QDAY Qty: 90 1RF donepezil 5 mg tablet 5 mg PO QDAY Qty: 90 1RF Discontinued candesartan-hydrochlorothiazid 32-25 mg tablet 1 tab PO QDAY Qty: 90 3RF amlodipine 10 mg tablet 10 mg PO QDAY Qty: 90 1RF Follow Up Plan Follow up with: Yaneth Simms PA-C [Primary Care Provider] - Shaun Bueno [Physician] - (new afib, chf, h/o CAD) Patient Disposition: Home, Self-Care Prognosis: Undetermined Overall status at discharge: patient is progressing back to baseline QUALITY VTE Deep Vein Thrombosis/Pulmonary Embolism Present on Admission: No
[2023-01-19] MEDS: NITROGLYCERIN/D5W 25 MG/250 ML BOTTLE IV SCH (16:21)
[2023-01-19] MEDS: CARVEDILOL 12.5 MG TABLET PO SCH (17:08)
[2023-01-19] MEDS: APIXABAN 5 MG TABLET PO SCH (20:43)
[2023-01-19] MEDS ORDERED: ATORVASTATIN 20 MG TABLET PO SCH (21:00)
[2023-01-20 06:40] LABS: Blood Urea Nitrogen 19 mg/dL (8-23); Calcium 8.6 mg/dL (8.6-10.4); Carbon Dioxide 26 mmol/L (22-30); Chloride 105 mmol/L (96-108); Glomerular Filtration Rate 70; Glucose 112 mg/dL (70-105)
[2023-01-20] MEDS: INSULIN LISPRO 1 UNIT/0.01 ML UNIT SQ SCH ×2 (07:03→11:07)
[2023-01-20] MEDS: CARVEDILOL 12.5 MG TABLET PO SCH (07:07)
[2023-01-20] MEDS: 0.9 % SODIUM CHLORIDE 250 ML IV SCH (07:11)
[2023-01-20] MEDS: DONEPEZIL 10 MG TABLET PO SCH (07:57)
[2023-01-20] MEDS: DOCUSATE SODIUM 100 MG CAPSULE PO SCH (07:57)
[2023-01-20] MEDS: POTASSIUM CHLORIDE 20 MEQ TABLET PO PRN (07:57)
[2023-01-20] MEDS: ASPIRIN 81 MG TAB.CHEW CHEWED SCH (07:57)
[2023-01-20] MEDS: APIXABAN 5 MG TABLET PO SCH (07:57)
[2023-01-20] MEDS: OLMESARTAN MEDOXOMIL 20 MG TABLET PO SCH (07:57)
[2023-01-20] MEDS: HYDROCHLOROTHIAZIDE 25 MG TABLET PO SCH (07:58)
[2023-01-20] MEDS ORDERED: FUROSEMIDE 40 MG/4 ML VIAL IV ONE (08:14)
--- NOTE | 2023-01-20 08:17 | Internal Med Progress Note ---
SUBJECTIVE Subjective Patient information: Note initiated : 01/20/23 at 8:11 am Service Date, if different from initiated Date: [] Patient: Glory Lam a 77 y/o F admitted on 01/18/23 for "I don't feel very good". Chief Complaint: [] Interval history: History of present illness: Ms. Lam is a 77 year old F Presents to [facility] care after feeling crummy for the past couple weeks. History is obtained from the patient and her who state that for the past 2 and half weeks she has had increased shortness of breath and left-sided chest pain that she describes as achy and nonradiating. She does take nitroglycerin as needed and has been taking that. She currently denies any chest pain. She has not seen her primary care doctor for her recent illness. She is also been more shortness of breath and her noticed that she has been more labored. She denies feeling any palpitations. No recent illnesses. Sounds like her blood pressure has been difficult to manage as well. she denies coughing. In the ED she had evaluation and was noted to be in A-fib RVR with rates 130s to 150s. She was hypertensive with systolics 140s to 150s and diastolics 110s. First troponin was 0.18 and follow-up troponin 3 hours later was 0.17. She was given diltiazem bolus with improvement in her heart rate. Patient denies history of atrial fibrillation. Last echocardiogram was June 2021 which shows a good EF of 60%. Dobutamine is stress test was unremarkable performed by Dr. Bueno. TSH and mag gee. Chest x-ray showed pulmonary edema and patient was given Lasix in the ED. Nitroglycerin gtt started for CHF and hypertension. Patient went back up into RVR and was given another bolus and may need to be put on a rate controlling drip. proBNP elevated at 10,000. After evaluating the patient in the ED I requested alycia to run case by cardiology given her h/o cad with stent and recent chest pain episodes as well as new afib with chf. she is also still smoking cigarettes. Case was d/w with Dr. Knox at [facility] who recommended treating here for new afib rvr with associated chf and she can f/u with them for ischemic w/u. 01/19 Patient states she slept okay but feels crummy this morning. Patient did not require esmolol drip overnight. Did fine on IV and p.o. Lopressor. Blood pressure improving on nitro drip and will DC. Good urine output overnight and multiple urinary incontinence is unrecorded amount. Mild hypokalemia and will replete. Follow-up chest x-ray status post diuresis and rate control with improved interstitial edema. Verbal report from headwaiter/headwaitress on echo stated that ejection fraction is 25% as well as diastolic dysfunction. 01/20 No overnight event or new complaints. Patient does complain of being tired. Heart rate controlled. blood pressure not quite optimized, will reduce Coreg. Mild hypokalemia. IV Lasix x1 today and then will transition to p.o. Lasix. Review of Systems: Pertinent positives as above. Denies headache/fever/chills/nausea/vomiting/chest or abdominal pain/cough/diarrhea. Remaining 10 point review of system reviewed negative. PHYSICAL EXAM General: Alert, Awake, mild Distress Eyes/N/T: EOMI, no scleral icterus, Head/Neck: neck supple, full ROM, no more jvd CV: irreg, No murmurs, Pulm: mild rales right base, better aeration on left, no wheezing, no respirat ory distress Abd: soft, nontender, +BS x4 Ext: no clubbing/cyanosis/edema, nontender Neuro: Alert, no focal deficits, moves all extremities, , sensations intact b/l upper/lower Psychiatric: Skin: warm/dry, normal color Constitutional Vitals: Vital Signs Temp Pulse Resp BP Pulse Ox O2 Del Method O2 Flow Rate 98.4 F 109 H 22 132/119 93 Room Air 1 01/20/23 04:01 01/19/23 18:01 01/20/23 08:05 01/20/23 08:01 01/20/23 02:00 01/20/23 07:34 01/19/23 05:01 Period Temp Pulse Resp BP Sys/Evans Pulse Ox O2 Del Method O2 Flow Rate Last 24 Hr 97.8 F-98.4 F 33-157 14-38 121-164/67-128 91-98 Room Air-Room Air Intake and Output 01/19/23 01/20/23 01/20/23 19:59 03:59 11:59 Intake Total 730 480 Output Total 257 225 28 Balance 473 -225 452 Weight 58.151 kg Intake & Output: Intake & Output 01/19/23 01/20/23 01/20/23 19:59 03:59 11:59 Intake Total 730 480 Output Total 257 225 28 Balance 473 -225 452 Weight 58.151 kg Intake: IV 250 Sodium Chloride 0.9% 250 ml @ 250 20 mls/hr IV .[id number] NAZARIO Rx#: [id number] Oral 480 480 Output: Void Amount 255 225 25 # of times incontinent of urine 2 3 Other: Meal Dinner Breakfast Percent of Meal Consumed 100% 100% Feeding Ability Independent Urine Appearance Clear Urine Color Light Malu Urine Odor Strong # of times incontinent of 1 Bowels OBJ DATA Labs 01/19/23 05:05 01/20/23 05:19 Labs: Abnormal Lab Results 01/20/23 01/19/23 01/19/23 05:19 05:05 05:05 MCV 101.5 H RDW 16.0 H RBC Morphology Polychromasia Potassium 3.2 L 3.1 L POC Chloride POC BUN Glucose 112 H 113 H POC Glucose Calcium 8.2 L POC WB Ioniz Calcium Total Bilirubin 1.1 H Direct Bilirubin 0.3 H NT-Pro-B Natriuret Pep Total Protein 5.8 L Urine Appearance Urine Protein Ur Leukocyte Esterase Urine RBC Urine WBC Urine Bacteria Urine Mucus POC Troponin I 01/18/23 01/18/23 01/18/23 21:06 15:52 15:50 MCV RDW RBC Morphology Polychromasia Potassium POC Chloride POC BUN Glucose POC Glucose Calcium POC WB Ioniz Calcium Total Bilirubin Direct Bilirubin NT-Pro-B Natriuret Pep 37564.0 H Total Protein Urine Appearance Cloudy A Urine Protein 30 A Ur Leukocyte Esterase 500 A Urine RBC 4 H Urine WBC > 182 H Urine Bacteria Many A Urine Mucus Many A POC Troponin I 0.17 H 01/18/23 01/18/23 01/18/23 12:50 12:45 12:43 MCV RDW 16.0 H RBC Morphology Abnormal A Polychromasia 1+ A Potassium POC Chloride 109 H POC BUN 26 H Glucose POC Glucose 140 H Calcium POC WB Ioniz Calcium 1.01 L Total Bilirubin Direct Bilirubin NT-Pro-B Natriuret Pep Total Protein Urine Appearance Urine Protein Ur Leukocyte Esterase Urine RBC Urine WBC Urine Bacteria Urine Mucus POC Troponin I 0.18 H Meds: Medications Acetaminophen (Acetaminophen 325 Mg Tablet) 650 mg PO Q6HP PRN PRN Reason: fever > 101 Last Admin: 01/19/23 20:43 Dose: 650 mg Albuterol/Ipratropium (Ipratropium/Albuterol 3 Ml Ampul.Neb) 3 ml NEB Q4HP PRN PRN Reason: Shortness Of Breath Apixaban (Apixaban 5 Mg Tablet) 5 mg PO BID [facility] Last Admin: 01/20/23 07:57 Dose: 5 mg Aspirin (Aspirin 81 Mg Tab.Chew) 81 mg CHEWED DAILY [facility] Last Admin: 01/20/23 07:57 Dose: 81 mg Atorvastatin Calcium (Atorvastatin 20 Mg Tablet) 20 mg PO HS [facility] Last Admin: 01/19/23 20:43 Dose: 20 mg Carvedilol (Carvedilol 12.5 Mg Tablet) 12.5 mg PO BIDCC [facility] Last Admin: 01/20/23 07:07 Dose: 12.5 mg Dextrose (Dextrose 50% 50 Ml Vial) 0 ml IV UD PRN PRN Reason: Per Sliding Scale Diagnostic Test (Pha) (Accu-Chek 1 Each Strip) 1 each FS ACHS [facility] Last Admin: 01/20/23 07:03 Dose: 1 each Docusate Sodium (Docusate Sodium 100 Mg Capsule) 100 mg PO BID [facility] Last Admin: 01/20/23 07:57 Dose: 100 mg Donepezil HCl (Donepezil 10 Mg Tablet) 5 mg PO QDAY [facility] Last Admin: 01/20/23 07:57 Dose: 5 mg Enalaprilat (Enalaprilat 1.25 Mg/Ml Vial) 0 mg IV Q2HP PRN PRN Reason: Hypertension Glucose (Dextrose 31 Gm Oral.Susp) 15 gm PO PRN PRN PRN Reason: Hypoglycemia Hydrochlorothiazide (Hydrochlorothiazide 25 Mg Tablet) 25 mg PO DAILY [facility] Last Admin: 01/20/23 07:58 Dose: 25 mg Nitroglycerin/Dextrose (Nitroglycerin/D5w) 25 mg in 250 mls @ 3 mls/hr IV .Q24H NAZARIO; Protocol Last Admin: 01/19/23 16:21 Dose: Not Given Esmolol HCl 2,500 mg/ Premix 250 mls @ 20.412 mls/hr IV .[id number] PRN; Protocol PRN Reason: tachycardia HR>110 Sodium Chloride (Sodium Chloride 0.9%) 250 mls @ 20 mls/hr IV .[id number] [facility] Last Admin: 01/20/23 07:11 Dose: Not Given Potassium Chloride 40 meq/ (Dextrose) 520 mls @ 130 mls/hr IV UD PRN PRN Reason: Potassium Level < 3 Magnesium Sulfate (Magnesium Sulfate) 2 gm in 50 mls @ 25 mls/hr IV UD PRN PRN Reason: Magnesium Level </= 1.6 Insulin Human Lispro (Insulin Lispro 1 Unit/0.01 Ml Unit) 0 unit SQ ACHS [facility]; Protocol Last Admin: 01/20/23 07:03 Dose: 4 units Labetalol HCl (Labetalol 5 Mg/Ml Ml) 0 mg IV Q2HP PRN PRN Reason: Hypertension Last Admin: 01/19/23 13:11 Dose: 10 mg Metoprolol Tartrate (Metoprolol Tartrate 5 Mg/5 Ml Vial) 5 mg IV Q2HP PRN PRN Reason: Tachyarrhythmias HR>110 Nitroglycerin (Nitroglycerin 0.4 Mg Tab.Subl) 0.4 mg SL Q5M PRN PRN Reason: Chest Pain Olmesartan (Olmesartan Medoxomil 20 Mg Tablet) 40 mg PO DAILY [facility] Last Admin: 01/20/23 07:57 Dose: 40 mg Ondansetron HCl (Ondansetron 4 Mg/2 Ml Vial) 4 mg IV Q4HP PRN PRN Reason: Nausea And Vomiting Polyethylene Glycol (Polyethylene Glycol 3350 17 Gm Packet) 17 gm PO DAILYP PRN PRN Reason: Constipation Potassium Chloride (Potassium Chloride 20 Meq Tablet) 40 meq PO UD PRN PRN Reason: Potassium Level of 3-3.5 Last Admin: 01/20/23 07:57 Dose: 40 meq Potassium Chloride (Potassium Chloride 20 Meq Tablet) 40 meq PO UD PRN PRN Reason: Potassium Level < 3 Senna (Sennosides 1 Tablet) 2 tab PO DAILYP PRN PRN Reason: Constipation A/P Narrative A/P Narrative: A: *New A-fib w/RVR: -CHADSVASC=7 -tsh/mag ok *Acute systolic(25%)/diastolic on likely chronic CHF: 2/2 above *Demand ischemia: 2/2 above, trop flat 0.18>0.17 *HTN Urgency: elevated on admit -sounds like it has been difficult to treat outpt *HypoKalemia: *h/o CAD w/stents: -Unremarkable dobutamine stress test June 2021 -pt on asa/statin *h/o CVA: pt on asa/statin *UTI(Klebsiella pneumonia): *COPD(not on home O2): *DM2: on metformin *HTN/HLD: On Norvasc/candesartan/hydrochlorothiazide *Memory loss: ?early vascular dementia vs MCI -on donepezil *Tobacco abuse: P: -cont coreg and titrate up -IV lasix today probably PO lasix tomorrow -Rocephin for uti -Monitor blood pressure closely -Anticoagulation with Lovenox twice daily to Eliquis -cont asa 81mg, statin -echo report pending -Monitor urine output/renal function/electrolytes and replace as needed -cont ARB -SSI -PT/OT -CM for any placement needs -Smoking cessation counseling -f/u with Dr. Bueno, cardiology -ppx: eliquamy DNR Time Spent With Patient Time: Total time spent is greater than 50% in coordination of care (as documented) at patient's floor/unit and/or counseling patient: Subsequent: Total time with patient: 50 - 65 Minutes QUALITY Stroke Symptom Onset Unknown: No VTE Deep Vein Thrombosis/Pulmonary Embolism Present on Admission: No
[2023-01-20] MEDS ORDERED: POTASSIUM CHLORIDE 20 MEQ TABLET PO ONE (08:18)
[2023-01-20] MEDS ORDERED: cefTRIAXone 1 GM VIAL IV SCH (11:00)
[2023-01-20] MEDS: LABETALOL 5 MG/ML ML IV PRN (12:15)
--- NOTE | 2023-01-20 16:40 | Cat Scan Report ---
INDICATION: Stroke Symptoms COMPARISON: Previous MRI scan dated 10/03/2022. Previous brain CT scan dated 03/10/2017 TECHNIQUE: Axial noncontrast-enhanced images through the brain. Sagittally and coronally reformatted images. FINDINGS: Cerebral hemispheres:No intra-axial hemorrhage. No acute intra-axial attenuation abnormality or localized mass effect. There is cerebral atrophy considered age-appropriate. There is white matter abnormality consistent with small vessel ischemic change in this 77-year-old patient. There is a nonacute 4 mm lacunar infarction within the right thalamus. This is unchanged. Brainstem and cerebellum:No intra-axial abnormality Extra-axial:No acute hemorrhage. No subdural or epidural hematoma. No subarachnoid hemorrhage. Basilar cisterns are normal Calvarial:No calvarial fracture. No lytic lesion Temporal bones are negative. No destructive lesions Soft tissue, orbits, sinuses:Orbits and visualized facial soft tissues and paranasal sinuses are negative IMPRESSION: 1. No acute intracranial hemorrhage. 2. Age-appropriate cerebral atrophy and white matter abnormality consistent with small vessel ischemic change 3. Nonacute right thalamic lacunar infarction 4. No acute abnormality The exam was performed using radiation dose optimization techniques including, but not limited to, automated exposure control, adjustment of the mA and/or kV according to patient size and use of iterative reconstruction technique. Interpreted and Authenticated by: Gerry Romeo 01/20/23
[2023-01-20 16:54] LABS: POC INR 1.5 (0.8-1.2); POC Pro Time 17.2 (11.9-14.5)
[2023-01-20 17:01] LABS: POC Calcium, Ionized 1.15 (1.16-1.32); POC Creatinine 0.8 (0.6-1.2); POC Potassium 3.8 (3.3-5.1)
--- NOTE | 2023-01-20 17:11 | Cat Scan Report ---
INDICATION: stroke COMPARISON: None. TECHNIQUE: Axial images were obtained through the upper chest, neck, and head during arterial phase. MIP and CPR reformatted images. 80ml Isovue 370 injected intravenously. FINDINGS: AORTIC ARCH:Calcified atherosclerotic plaque. Origins of the left subclavian artery, left vertebral artery, left common carotid artery, innominate artery, right common carotid artery, right subclavian artery, right vertebral artery are negative. No origin stenosis. Incidental note is made of a trifurcation origin of the left common carotid artery. CAROTID ARTERIES:Right: Right common carotid artery is negative. No stenosis or occlusion. Calcified plaque at the origin of the right internal carotid artery. No significant stenosis or evidence for ulceration. Right internal carotid artery is otherwise negative. No stenosis or occlusion. No fibromuscular dysplasia or dissection. Left: Left common carotid artery is negative. No stenosis or occlusion Calcified plaque at the origin of left internal carotid artery. No significant stenosis. No evidence for ulceration. Left internal carotid artery is otherwise negative. There is no stenosis or occlusion. No dissection or evidence for fibromuscular dysplasia VERTEBRAL ARTERIES:Vertebral arteries are patent without stenosis or occlusion [place]:[Occlusion of the M1 segment of the right middle cerebral artery. Occlusion is located 4 mm distal to the origin of the M1 segment. Appearance is consistent with embolus. A1 segment of the anterior cerebral artery is normal bilaterally. M1 segment of the left middle cerebral artery is normal.] Intracranial vertebral arteries are patent. Basilar artery is a small caliber vessel but is patent without focal stenosis or occlusion INTRACRANIAL CIRCULATION:There is opacification of the distal branches in the right middle cerebral artery distribution via transcortical collaterals No intracranial aneurysm. No arteriovenous malformation. UPPER CHEST:Bilateral pleural effusions, right larger than left. Heart failure is suspected. This patient has a markedly diminished ejection fraction. There are calcified pleural plaques bilaterally suggesting asbestosis exposure. NECK:No solid or cystic soft tissue mass. No pathologic lymphadenopathy. BRAIN:No acute intracranial hemorrhage. No focal attenuation abnormalities or pathologic contrast enhancement. IMPRESSION: 1. 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 Calcified atherosclerotic plaque in the proximal internal carotid artery bilaterally as well as within the aortic arch. 3. No hemodynamically significant carotid stenosis. No evidence for ulcerated plaque 4. Bilateral pleural effusions, right larger than left 5. Calcified pleural plaques consistent with asbestosis exposure The exam was performed using radiation dose optimization techniques including, but not limited to, automated exposure control, adjustment of the mA and/or kV according to patient size and use of iterative reconstruction technique. Interpreted and Authenticated by: Gerry Romeo 01/20/23
[2023-01-20] MEDS ORDERED: LABETALOL 5 MG/ML ML IV PRN ×2 (17:14→17:20)
[2023-01-20] MEDS ORDERED: hydrALAZINE 20 MG/ML VIAL IV PRN ×2 (17:15→17:20)
[2023-01-20 17:24] LABS: Basophils # (Auto) 0.04 K/mcL (0.00-0.30); Basophils % (Auto) 0.4 % (0.0-2.0); Eosinophils # (Auto) 0.38 K/mcL (0.00-0.70); Eosinophils % (Auto) 3.4 % (0.0-7.0); Hematocrit 41.5 % (34.1-44.9); Hemoglobin 13.5 g/dL (11.2-15.7); Lymphocytes # (Auto) 3.37 K/mcL (1.50-4.80); Lymphocytes % (Auto) 30.6 % (15.5-49.0); Mean Cell Volume 98.3 fL (80.0-100.0); Mean Corpuscular HGB Conc 32.5 g/dL (31.0-36.0); Mean Platelet Volume 11.1 fL (8.8-12.5); Monocytes # (Auto) 0.84 K/mcL (0.10-0.90); Monocytes % (Auto) 7.6 % (1.0-12.0); Neutrophils % (Auto) 57.7 % (38.0-78.0); Platelet Count 313 K/mcL (140-440); RBC 4.22 M/mcL (3.59-5.38); Red Cell Distribution Width 15.6 % (11.5-14.5)
--- NOTE | 2023-01-20 17:29 | Event Note ---
Event Note Event Note: at around 1620 while was talking to his the nurse heard the patient's voice suddenly change and the noted she became decreasingly responsive. Patient had a hard time opening her eyes. She was not answering many questions but occasionally blurted out a curse word indicating she was aware of what was occurring. When I saw her she partially opened eyes to voice, followed some commands, was weak on the left side and was quickly ushered to CT scanner. Noncontrast CT scan was unremarkable but the CTA per verbal report showed an occlusion of the right M1 branch. Upon return from CT scanner pt is noted to be flaccid on left side. Case was discussed with stroke neurologist who is currently evaluating the patient upon return from radiology. Patient will be transferred up to [place] for mechanical thrombectomy. Blood pressure prior to the event was controlled and then as expected elevated during and after the event. Patient has been on anticoagulation for the past couple days for new A-fib. She has also has been on aspirin 81mg daily and a statin for history of CAD and remote stent placement. heart rate is controlled. We have updated her James . Critical care time spent in evaluation and coordination of care 90 minutes.
[2023-01-20] MEDS ORDERED: CARVEDILOL 12.5 MG TABLET PO SCH (17:30)
[2023-01-20 17:38] LABS: Blood Urea Nitrogen 18 mg/dL (8-23); Calcium 9.1 mg/dL (8.6-10.4); Carbon Dioxide 31 mmol/L (22-30); Chloride 95 mmol/L (96-108); Glomerular Filtration Rate 70; Glucose 160 mg/dL (70-105)
--- NOTE | 2023-01-20 17:52 | Transfer Summary ---
Discharge Provider Provider IMPORTANT FOLLOW-UP INFORMATION FOR PCP: Patient information: Note initiated : 01/20/23 at 5:41 pm Service Date, if different from initiated Date: [] Patient: Glory Lam a 77 y/o F admitted on 01/18/23 for "I don't feel very good". Chief Complaint: [] Date of admission: 01/18/23 18:35 Discharge date: 01/20/23 Primary care physician: Yaneth Simms PA-C Consults: 01/18/23 Consult to Physician [CONS] Stat Comment: Consulting Provider: Steve Mccarthy Reason For Exam: Physician to Consult COURSE Hospital Course Hospital course: History of present illness: Ms. Lam is a 77 year old F Presents to [facility] care after feeling crummy for the past couple weeks. History is obtained from the patient and her who state that for the past 2 and half weeks she has had increased shortness of breath and left-sided chest pain that she describes as achy and nonradiating. She does take nitroglycerin as needed and has been taking that. She currently denies any chest pain. She has not seen her primary care doctor for her recent illness. She is also been more shortness of breath and her noticed that she has been more labored. She denies feeling any palpitations. No recent illnesses. Sounds like her blood pressure has been difficult to manage as well. she denies coughing. In the ED she had evaluation and was noted to be in A-fib RVR with rates 130s to 150s. She was hypertensive with systolics 140s to 150s and diastolics 110s. First troponin was 0.18 and follow-up troponin 3 hours later was 0.17. She was given diltiazem bolus with improvement in her heart rate. Patient denies history of atrial fibrillation. Last echocardiogram was June 2021 which shows a good EF of 60%. Dobutamine is stress test was unremarkable performed by Dr. Bueno. TIFFANIE and mag gee. Chest x-ray showed pulmonary edema and patient was given Lasix in the ED. Nitroglycerin gtt started for CHF and hypertension. Patient went back up into RVR and was given another bolus and may need to be put on a rate controlling drip. proBNP elevated at 10,000. After evaluating the patient in the ED I requested alycia to run case by cardiology given her h/o cad with stent and recent chest pain episodes as well as new afib with chf. she is also still smoking cigarettes. Case was d/w with Dr. Knox at [facility] who recommended treating here for new afib rvr with associated chf and she can f/u with them for ischemic w/u. 01/19 Patient states she slept okay but feels crummy this morning. Patient did not require esmolol drip overnight. Did fine on IV and p.o. Lopressor. Blood pressure improving on nitro drip and will DC. Good urine output overnight and multiple urinary incontinence is unrecorded amount. Mild hypokalemia and will replete. Follow-up chest x-ray status post diuresis and rate control with improved interstitial edema. nitro gtt off. *Lopressor changed to coreg for better BP control. Verbal report from nuclear spectroscopist on echo stated that ejection fraction is 25% as well as diastolic dysfunction. 01/20 No overnight event. Patient does complain of being tired but no other complaints. Heart rate controlled.blood pressure not quite optimized, will increase coreg. Mild hypokalemia. IV Lasix x1 today and then will transition to p.o. Lasix. 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: *New A-fib w/RVR: rate controlled -CHADSVASC=7 *Acute systolic(25%)/diastolic on likely chronic CHF: 2/2 above *Demand ischemia: 2/2 above, trop flat 0.18>0.17 -case was discussed with nuclear spectroscopist from ED, recs were to f/u oupt for ischemic w/u *HTN Urgency: elevated on admit -sounds like it has been difficult to treat outpt *HypoKalemia: *h/o CAD w/stent in distant past: -Unremarkable dobutamine stress test June 2021 -pt on asa/statin *h/o CVA: pt on asa/statin *UTI(Klebsiella pneumonia): *COPD(not on home O2): *DM2: on metformin *HTN/HLD: has been on Norvasc/candesartan/hydrochlorothiazide at home *Memory loss: ?early vascular dementia vs MCI -on donepezil *Tobacco abuse: P: -Acute transfer to higher level of care for mechanical thrombectomy -prior to event the patient had been on coreg/ARB/Lasix as well as asa 81mg and lipitor 20mg -Rocephin for uti -Smoking cessation counseling -plan was to f/u with Dr. Bueno (nuclear spectroscopist) outpt for ischemic eval Code status: DNR Discharge diagnosis: Acute ischemic stroke A-fib RVR systolic heart failure Secondary discharge diagnosis: Demand ischemia diabetes hypertension COPD CAD history of stroke UTI with Klebsiella's hyperlipidemia tobacco abuse Time Spent with Patient Time attestation: Total time spent providing and/or coordinating discharge services: Time spent: Greater than 30 minutes EXAM Constitutional Vitals: Temp Pulse Resp BP Pulse Ox O2 Del Method O2 Flow Rate 98.0 F 63 15 167/127 100 Room Air 1 01/20/23 15:52 01/20/23 17:24 01/20/23 17:24 01/20/23 17:15 01/20/23 17:24 01/20/23 13:51 01/19/23 05:01 Discharge Data Data Completed and Pending Labs on day of discharge: Labs from last 24 hours 01/20/23 01/20/23 01/20/23 16:59 16:55 16:53 WBC RBC Hgb Hct POC Hct 42.0 MCV MCH MCHC RDW Plt Count MPV Immature Gran % (Auto) Neut % (Auto) Lymph % (Auto) [place] % (Auto) Eos % (Auto) Baso % (Auto) Lymph # (Auto) [place] # (Auto) Eos # (Auto) Baso # (Auto) Immature Gran # Absolute Neutrophils POC PT POC INR APTT POC VBG pH 7.47 H POC VBG pCO2 at Temp 46.8 POC VBG pO2 47 H POC VBG HCO3 33.9 H POC VBG Total CO2 35.0 H POC Venous O2 Sat 85.0 H POC VBG Base Excess 10.0 H* VBG Lactic Acid 1.2 POC Sodium 136 Sodium 134 POC Potassium 3.8 Potassium 3.8 POC Chloride 94 L Chloride 95 L Carbon Dioxide 31 H POC Total CO2 32.0 H Anion Gap 8.0 POC Anion Gap 16.0 POC BUN 19 BUN 18 Creatinine 0.8 POC Creatinine 0.8 GFR Calculation 70 Glucose 160 H POC Glucose 153 H Calcium 9.1 POC WB Ioniz Calcium 1.15 L Hold Red Top Pending 01/20/23 01/20/23 01/20/23 16:53 16:53 16:50 WBC 11.0 RBC 4.22 Hgb 13.5 Hct 41.5 POC Hct MCV 98.3 MCH 32.0 MCHC 32.5 RDW 15.6 H Plt Count 313 MPV 11.1 Immature Gran % (Auto) 0.3 Neut % (Auto) 57.7 Lymph % (Auto) 30.6 [place] % (Auto) 7.6 Eos % (Auto) 3.4 Baso % (Auto) 0.4 Lymph # (Auto) 3.37 [place] # (Auto) 0.84 Eos # (Auto) 0.38 Baso # (Auto) 0.04 Immature Gran # 0.03 Absolute Neutrophils 6.36 POC PT 17.2 H POC INR 1.5 H APTT 37.4 H POC VBG pH POC VBG pCO2 at Temp POC VBG pO2 POC VBG HCO3 POC VBG Total CO2 POC Venous O2 Sat POC VBG Base Excess VBG Lactic Acid POC Sodium Sodium POC Potassium Potassium POC Chloride Chloride Carbon Dioxide POC Total CO2 Anion Gap POC Anion Gap POC BUN BUN Creatinine POC Creatinine GFR Calculation Glucose POC Glucose Calcium POC WB Ioniz Calcium Hold Red Top 01/20/23 05:19 WBC RBC Hgb Hct POC Hct MCV MCH MCHC RDW Plt Count MPV Immature Gran % (Auto) Neut % (Auto) Lymph % (Auto) [place] % (Auto) Eos % (Auto) Baso % (Auto) Lymph # (Auto) [place] # (Auto) Eos # (Auto) Baso # (Auto) Immature Gran # Absolute Neutrophils POC PT POC INR APTT POC VBG pH POC VBG pCO2 at Temp POC VBG pO2 POC VBG HCO3 POC VBG Total CO2 POC Venous O2 Sat POC VBG Base Excess VBG Lactic Acid POC Sodium Sodium 139 POC Potassium Potassium 3.2 L POC Chloride Chloride 105 Carbon Dioxide 26 POC Total CO2 Anion Gap 8.0 POC Anion Gap POC BUN BUN 19 Creatinine 0.8 POC Creatinine GFR Calculation 70 Glucose 112 H POC Glucose Calcium 8.6 POC WB Ioniz Calcium Hold Red Top Discharge Plan Patient/Caregiver Discharge Instructions Activity: increase activity as tolerated Diet: Consistent Carbohydrate Instructions: Apixaban (By mouth), A-fib (Atrial Fibrillation) (DC), How to Sto p Smoking (DC) Prescriptions: New Eliquis 5 mg tablet 5 mg PO BID Qty: 60 0RF furosemide [Lasix] 40 mg tablet 40 mg PO QAM Qty: 30 0RF candesartan 32 mg tablet 32 mg PO QDAY Qty: 30 0RF carvedilol [Coreg] 25 mg tablet 25 mg PO BID Qty: 60 0RF Rx Instructions: must administer with a meal/food Continued rosuvastatin 10 mg tablet 10 mg PO QDAY Qty: 90 1RF nitroglycerin 0.4 mg tablet, sublingual 0.3 mg sublingual Q5M PRN (Reason: chest pain) Qty: 25 0RF Rx Instructions: do not exceed 3 doses per episode aspirin 81 mg tablet,delayed release (DR/EC) 81 mg PO DAILY metformin 500 mg tablet extended release 24 hr 500 mg PO QDAY Qty: 90 1RF donepezil 5 mg tablet 5 mg PO QDAY Qty: 90 1RF Discontinued candesartan-hydrochlorothiazid 32-25 mg tablet 1 tab PO QDAY Qty: 90 3RF amlodipine 10 mg tablet 10 mg PO QDAY Qty: 90 1RF Follow Up Plan Follow up with: Yaneth Simms PA-C [Primary Care Provider] - Shaun Bueno [Physician] - (new afib, chf, h/o CAD) Patient Disposition: Xfer Acute Care Hospital Prognosis: Undetermined Rehab Potential: Serious Overall status at discharge: patient is not back to baseline Discharge Orders: Discharge Order (Routine); Ordered 01/20/23 Ordered By: Steve Mccarthy [facility] VTE Deep Vein Thrombosis/Pulmonary Embolism Present on Admission: No
--- NOTE | 2023-01-21 07:18 | EKG ---
[facility] Test Date: 2023-01-18 Pat Name: Glory Lam Department: ED Room: Gender: Female Repulping Supervisor: DR JACKSON: 1945 Requested By: Derek Raza Order Number: [id number] Rosi MD: Gerry Rubio M.D. Measurements Intervals [place] Rate: 160 P: HI: QRS: 62 QRSD: 86 T: 244 QT: 286 QTc: 467 Interpretive Statements Atrial fibrillation with rapid V-rate Anterior infarct, old Repolarization abnormality, prob rate related Electronically Signed On 01-21-2023 7:17:40 PDT by Gerry Rubio M.D. /[id number]
--- NOTE | 2023-01-21 07:21 | EKG ---
[facility] Test Date: 2023-01-18 Pat Name: Glory Lam Department: ED Room: Gender: Female Case Consultant: ss : 1945 Requested By: Berenice Nichole Order Number: [id number] Reading MD: Gerry Rubio M.D. Measurements Intervals [place] Rate: 118 P: AL: QRS: 35 QRSD: 78 T: 258 QT: 392 QTc: 550 Interpretive Statements Atrial fibrillation Anterior infarct, old Borderline repolarization abnormality Prolonged QT interval Electronically Signed On 01-21-2023 7:20:44 PDT by Gerry Rubio M.D. /[email or web address]/[email or web address]/[id number]
[2023-01-21] MEDS ORDERED: FUROSEMIDE 40 MG TABLET PO SCH (09:00)
== END 2023-01-20 18:10 | disposition short-term general hospital (02) | DRG 64 ==
LOC: ED 12:00 → ICU 18:35
PROVIDERS: ADMIT Internal Medicine; ATTEND Internal Medicine